=== PATIENT | female | born 1970 | race Two or more races ===

== ENCOUNTER 2018-01-26 05:28 | Emergency (ER) | payer MEDICAID ==
[~2018-01-26 05:28] MED LIST: ALPR-429 PO; ALPR-460 PO; AMIT-106 PO; AMOX-362 PO; CYCL-343 PO; DIA10 PO; DIA5 PO; DICY20TA96 PO; FLUC150T40 PO; FLUO-201 PO; GLYBURIDE PO; HYDR-4309 PO; LOR1 PO; LOR5/325 PO; LORA-1456 PO; MET500 PO; METO-224 PO; METO-734 PO; NO HOME MEDS; OMEP-125 PO; ONDA4TAB PO; ONDA4TAB97 PO; OXYC1TAB54 PO; OXYC7.5T PO; PANT20TA27 PO; PROM-110 PO; PROM25SU8 PR; PROM25SU9 RC; PROM50SU6 PR; RANI150C17 PO; ROPI1TAB36 PO; TRAM-420 PO
--- NOTE | 2018-01-26 05:30 | ER Report ---
History and Physical Time Seen By MD: 05:29 HPI/ROS CHIEF COMPLAINT: Anxiety, vomiting HISTORY OF PRESENT ILLNESS: 47-year-old female presents ambulatory to the ER complaining of vomiting and anxiety. Patient has a history of recurrent anxiety and vomiting. She was seen in the ER on numerous occasions approximately 2 years ago. She had extensive evaluation including CAT scans and endoscopy. All of which were unremarkable. Patient was seen at urgent care recently and placed on alprazolam for anxiety. She only got a prescription for 6 or 8 pills. She tried taking is tonight without improvement. She is very anxious and having repetitive vomiting and gagging with dry heaves. REVIEW OF SYSTEMS: Respiratory: No cough, no dyspnea. Cardiovascular: No chest pain, no palpitations. Gastrointestinal: As above, no abdominal pain. Musculoskeletal: No back pain. Allergies: Coded Allergies: No Known Drug Allergies (Unverified , 01/26/18) Home Meds Active Scripts Hydroxyzine Hcl (HYDROXYZINE HCL) 25 Mg Tablet, 1-2 TAB PO Q6H Y for anxiety or vomiting, #30 Prov:LINWOOD WELDON DO 01/26/18 Ondansetron (ZOFRAN ODT) 4 Mg Tab.rapdis, 4 MG PO every 6 hours Y for NAUSEA/ VOMITING, #10 TAB TAKE 1 TABLET BY MOUTH EVERY 12 HOURS Prov:LINWOOD WELDON DO 01/26/18 Reported Medications Fluticasone Prop 50 Mcg Ns (FLONASE 50 MCG NS) 16 Gm [place].susp, 1 SPRAY NS BID , BOT 01/26/18 Modafinil (MODAFINIL) 200 Mg Tablet, 200 MG PO 01/26/18 Bupropion Hcl (WELLBUTRIN XL) 150 Mg Tab.er.24h, 150 MG PO QDAY, TAB 01/26/18 Discontinued Scripts Promethazine Hcl (PROMETHAZINE HCL) 25 Mg Supp.rect, 25 MG RC Q8H Y for NAUSEA/ VOMITING, #12 SUPP.RECT Prov:AMANDA LEMONS 10/06/16 Promethazine Hcl (PROMETHAZINE HCL) 25 Mg Tablet, 25 MG PO Q8H Y for NAUSEA/ VOMITING, #12 TAB Prov:AMANDA LEMONS 10/06/16 Reviewed Nurses Notes: Yes Old Medical Records Reviewed: Yes Hx Smoking: Yes Smoking Status: Light Tobacco Smoker Exposure to Second Hand Smoke?: No Hx Substance Use Disorder: No Hx Alcohol Use: Yes Constitutional Vital Sign - Last 24 Hours 01/26/18 01/26/18 05:32 06:40 Temp 98.2 Pulse 111 90 Resp 19 19 B/P (MAP) 137/116 137/80 (99) Pulse Ox 97 94 O2 Delivery Room Air Room Air Physical Exam General Appearance: The patient is alert, has no immediate need for airway protection and no current signs of toxicity. Moderate distress, anxious- appearing, vital signs stable, afebrile, pulse ox normal HEENT: Pupils equal and round no injection. Oropharynx without redness or exudate, mucous membranes are moist Respiratory: Chest is non tender, lungs are clear to auscultation. Cardiac: regular rate and rhythm Gastrointestinal: Abdomen is soft and non tender, no masses, bowel sounds normal. Musculoskeletal: Neck: Neck is supple and non tender. No lymphadenopathy, no meningismus Extremities have full range of motion and are non tender. Skin: No rashes or lesions. DIFFERENTIAL DIAGNOSIS: After history and physical exam differential diagnosis was considered for abdominal pain including but not limited to appendicitis, cholecystitis, gastritis and urinary tract infection. Additionally, anxiety, panic attack, gastroparesis. Medical Decision Making ED Course/Re-evaluation ED Course Patient was admitted to an examination room. H&P was done. The differential diagnoses was considered. On clinical exam. Patient has a benign nonsurgical abdomen. She is having repetitive vomiting. She's medicated with Zofran 4 mg sublingual. She's given hydroxyzine 50 mg by mouth. After 5 minutes she vomits up the tablets. She is redosed with a 2nd dose of hydroxyzine 50 mg by mouth. After 25 minutes or vomiting controlled. She tolerates a by mouth challenge. She is discharged home with a prescription for hydroxyzine 25 mg 1- 2 tablets every 6 hours., Nausea or vomiting. Patient's also advised that she can take this for anxiety. Patient advised to follow up with primary care if unimproved in 3-5 days. Decision to Disposition Date: Jan 26, 2018 Decision to Disposition Time: 06:10 Depart Departure Latest Vital Signs Vital Signs Date Time Temp Pulse Resp B/P (MAP) Pulse Ox O2 Delivery O2 Flow Rate FiO2 01/26/18 06:40 90 19 137/80 (99) 94 Room Air 01/26/18 05:32 98.2 Impression: Primary Impression: Vomiting Additional Impression: Anxiety attack Condition: Improved Disposition: HOME OR SELF-CARE New Scripts Hydroxyzine Hcl (HYDROXYZINE HCL) 25 Mg Tablet 1-2 TAB PO Q6H Y for anxiety or vomiting, #30 Prov: LINWOOD WELDON DO 01/26/18 Patient Instructions: Acute Nausea and Vomiting (ED), Panic Attack (ED) Additional Instructions: Follow-up with your primary care doctor if unimproved in 3-5 days Problem Qualifiers Primary Impression: Vomiting Vomiting type: unspecified Vomiting Intractability: intractable Nausea presence: unspecified Qualified Codes: R11.10 - Vomiting, unspecified LINWOOD WELDON DO Jan 26, 2018 05:30
[2018-01-26] MEDS ORDERED: FLUT16SP19 NS (05:45)
[2018-01-26] MEDS ORDERED: MODA200T6 PO (05:45)
[2018-01-26] MEDS ORDERED: BUPR-472 PO (05:45)
[2018-01-26] MEDS ORDERED: ONDANSETRON 4 MG ODT TABDP SL ONE (05:50)
[2018-01-26] MEDS ORDERED: hydrOXYzine PAMOATE 25 MG CAP PO ONE (05:50)
[2018-01-26] MEDS ORDERED: HYDR-4225 PO (06:12)
[2018-01-26] MEDS ORDERED: ONDA4TAB PO (06:12)
[2018-01-26] MEDS ORDERED: hydrOXYzine 25 MG TAB PO ONE (06:20)
[2018-01-26 06:40] VITALS: BP 137/80
== END 2018-01-26 06:40 | disposition home or self-care (01) ==
LOC: ER 05:32
DX: F41.0 Panic disorder [episodic paroxysmal anxiety] (principal); R11.10 Vomiting, unspecified
CPT/HCPCS: 99282; Q0177; S0119

== ENCOUNTER 2018-05-10 13:46 | Emergency (ER) | payer MEDICAID ==
[~2018-05-10 13:46] MED LIST changes: +BUPR-472 PO; +FLUT16SP19 NS; +HYDR-4225 PO; +MODA200T6 PO
--- NOTE | 2018-05-10 13:47 | ER Report ---
History and Physical Time Seen By MD: 13:47 HPI/ROS CHIEF COMPLAINT: Toothache HISTORY OF PRESENT ILLNESS: Patient with complaint of left 3rd maxillary molar pain. Patient has been taking Tylenol and Motrin without relief. She does have an oral maxillary facial surgeon who she follows with. She has an appointment with Dr. Stokes in the near future for a consultation and subsequent possible tooth removal. Allergies: Coded Allergies: No Known Drug Allergies (Unverified , 01/26/18) Home Meds Active Scripts Hydroxyzine Hcl (HYDROXYZINE HCL) 25 Mg Tablet, 1-2 TAB PO Q6H Y for anxiety or vomiting, #30 Prov:LINWOOD WELDON DO 01/26/18 Reported Medications Fluticasone Prop 50 Mcg Ns (FLONASE 50 MCG NS) 16 Gm [place].susp, 1 SPRAY NS BID , BOT 01/26/18 Modafinil (MODAFINIL) 200 Mg Tablet, 200 MG PO 01/26/18 Bupropion Hcl (WELLBUTRIN XL) 150 Mg Tab.er.24h, 150 MG PO QDAY, TAB 01/26/18 Hx Smoking: Yes Smoking Status: Light Tobacco Smoker Exposure to Second Hand Smoke?: No Hx Substance Use Disorder: No Hx Alcohol Use: Yes Constitutional Vital Sign - Last 24 Hours 05/10/18 13:50 Temp 97.2 Pulse 89 Resp 22 B/P (MAP) 128/101 Pulse Ox 94 O2 Delivery Room Air Physical Exam General appearance: Alert no distress. Oropharyngeal: Mucous membranes are moist. Patient has erosion of the dentin of the left upper 3rd maxillary tooth. There is no gingival inflammation or swelling. No evidence for abscess. Medical Decision Making ED Course/Re-evaluation ED Course Patient with dental caries. Plan will be short course of oral pain medication and penicillin. Patient is going to follow with Dr. Stokes for tooth removal. Decision to Disposition Date: May 10, 2018 Decision to Disposition Time: 14:05 Depart Departure Latest Vital Signs Vital Signs Date Time Temp Pulse Resp B/P (MAP) Pulse Ox O2 Delivery O2 Flow Rate FiO2 05/10/18 13:50 97.2 89 22 128/101 94 Room Air Impression: Primary Impression: Toothache Condition: Improved Disposition: HOME OR SELF-CARE New Scripts Amoxicillin (AMOXICILLIN) 500 Mg Capsule 1 CAP PO Q8H, #15 CAPSULE 0 Refills TAKE ONE CAPSULE BY MOUTH EVERY 8 HOURS Prov: BRUNO ANN MD 05/10/18 Hydrocodone Bit/Acetaminophen (HYDROCODON-ACETAMINOPHEN 5-325) 1 Each Tablet 1 EACH PO Q6H Y for PAIN, #15 TAB 0 Refills Prov: BRUNO ANN MD 05/10/18 Patient Instructions: Toothache (ED) BRUNO ANN MD May 10, 2018 13:47
[2018-05-10 13:50] VITALS: BP 128/101
[2018-05-10] MEDS ORDERED: HYDR-385 PO (14:03)
[2018-05-10] MEDS ORDERED: AMOX-362 PO (14:03)
[2018-05-10] MEDS ORDERED: TRAM-420 PO (16:58)
== END 2018-05-10 14:11 | disposition home or self-care (01) ==
LOC: ER 13:50
DX: K08.89 Other specified disorders of teeth and supporting structures (principal)
CPT/HCPCS: 99281

== ENCOUNTER 2018-05-10 15:47 | Emergency (ER) | payer MEDICAID ==
[~2018-05-10 15:47] MED LIST changes: +HYDR-385 PO
[2018-05-10 15:57] VITALS: BP 166/111
--- NOTE | 2018-05-10 16:05 | ER Report ---
History and Physical Time Seen By MD: 15:49 Hx. of Stated Complaint: PPT RETURNS FOR WORSENING TOOTH PAIN. HAS TAKEN HER MEDS WITHOUT RELIEF HPI/ROS CHIEF COMPLAINT: Dental pain HISTORY OF PRESENT ILLNESS: This is a 47-year-old female who was seen in the emergency department approximately 2 Hours prior to arrival, she returns for the same complaint of dental pain. Patient states that she did go get her prescriptions filled took her antibiotic and some pain medication, realized that the pain medication "does not work for her" and decided to return to the emergency department for reevaluation. Patient also states that the pain "has increased on the left side of my mouth". Patient has no other deficits. No fevers, no aches, chills, chest pain or shortness of breath. Allergies: Coded Allergies: No Known Drug Allergies (Unverified , 05/10/18) Home Meds Active Scripts Tramadol Hcl (TRAMADOL HCL) 50 Mg Tablet, 50-100 MG PO Q4-6H, #15 TAB 0 Refills Max dose of 10 tabs a day. Prov:GABINO TOSCANO LIME KILN AND RECAUSTICIZING OPERATOR-BC 05/10/18 Amoxicillin (AMOXICILLIN) 500 Mg Capsule, 1 CAP PO Q8H, #15 CAPSULE 0 Refills TAKE ONE CAPSULE BY MOUTH EVERY 8 HOURS Prov:BRUNO ANN MD 05/10/18 Hydrocodone Bit/Acetaminophen (HYDROCODON-ACETAMINOPHEN 5-325) 1 Each Tablet, 1 EACH PO Q6H Y for PAIN, #15 TAB 0 Refills Prov:BRUNO ANN MD 05/10/18 Hydroxyzine Hcl (HYDROXYZINE HCL) 25 Mg Tablet, 1-2 TAB PO Q6H Y for anxiety or vomiting, #30 Prov:LINWOOD WELDON DO 01/26/18 Reported Medications Fluticasone Prop 50 Mcg Ns (FLONASE 50 MCG NS) 16 Gm [place].susp, 1 SPRAY NS BID , BOT 01/26/18 Modafinil (MODAFINIL) 200 Mg Tablet, 200 MG PO 01/26/18 Bupropion Hcl (WELLBUTRIN XL) 150 Mg Tab.er.24h, 150 MG PO QDAY, TAB 01/26/18 Past Medical/Surgical History The patient has a past medical and surgical history of migraines, sleep apnea, wears glasses, diabetes, anxiety, depression. Hx Smoking: Yes Smoking Status: Light Tobacco Smoker Exposure to Second Hand Smoke?: No Hx Substance Use Disorder: No Hx Alcohol Use: Yes Constitutional Vital Sign - Last 24 Hours 05/10/18 15:57 Temp 97.8 Pulse 84 Resp 22 B/P (MAP) 166/111 Pulse Ox 94 O2 Delivery Room Air Physical Exam General appearance: Alert no distress. Respiratory: Chest is non tender, lungs are clear to auscultation. Cardiac: Regular rate and rhythm Dental: The gingiva is pink and moist, no erythema or obvious signs of infection. Patient does have dental caries and multiple fillings to her teeth. She does have what appears to be a dental carry to the outside of the #15 tooth. And what appears to be an erupting molar on the same side. DIFFERENTIAL DIAGNOSIS: After history and physical exam differential diagnosis was considered for dental abscess, dental caries and dental pain. Medical Decision Making ED Course/Re-evaluation ED Course The patient was admitted to room. A history physical were obtained. Differential diagnoses were considered. I did offer the patient a dental block which she accepted, no the block below. I did tell the patient that I would give her a prescription for Ultram if she brought in the hydrocodone, she did return a hydrocodone to us I did count to myself she had 13 of the hydrocodone in the bottle the prescription was for 15. The patient states she is going to call the dentist tomorrow. Patient had no other questions or concerns at this time and discharged home. I did tell the patient I can exchanger her medications, if she returns the Hydrocodone I can send an Rx into her pharmacy for Ultram. The patient is willing to do this as she "had hard time with hydrocodone". Procedure: Dental block. Dental block was performed. The indication for the procedure dental pain. An inferior alveolar nerve block was done using 0.25% Bupivicaine x2 with a total of 4mls injected. The patient tolerated well. The procedure was performed by myself. Decision to Disposition Date: May 10, 2018 Decision to Disposition Time: 16:38 Depart Departure Latest Vital Signs Vital Signs Date Time Temp Pulse Resp B/P (MAP) Pulse Ox O2 Delivery O2 Flow Rate FiO2 05/10/18 15:57 97.8 84 22 166/111 94 Room Air Impression: Primary Impression: Pain, dental Condition: Improved Disposition: HOME OR SELF-CARE New Scripts Tramadol Hcl (TRAMADOL HCL) 50 Mg Tablet 50-100 MG PO Q4-6H, #15 TAB 0 Refills Max dose of 10 tabs a day. Prov: GABINO TOSCANO 05/10/18 Patient Instructions: Dental Caries (ED) Additional Instructions: Continue taking that antibiotic as prescribed. Use the Ultram as prescribed for severe pain. Take Ibuprofen as needed for additional pain relief. Keep your Dental appointment. Return to the ED for any other concerns or worsening symptoms. GABINO TOSCANO-MARTIN May 10, 2018 16:05
[2018-05-10] MEDS ORDERED: TRAM-420 PO (16:58)
== END 2018-05-10 16:56 | disposition home or self-care (01) ==
LOC: ER 16:00
DX: K08.89 Other specified disorders of teeth and supporting structures (principal)
CPT/HCPCS: 99282; D9110

== ENCOUNTER 2018-05-12 18:22 | Emergency (ER) | payer MEDICAID ==
--- NOTE | 2018-05-12 18:44 | ER Report ---
History and Physical Time Seen By MD: 18:24 HPI/ROS CHIEF COMPLAINT: Left upper toothache HISTORY OF PRESENT ILLNESS: 47-year-old female presents ambulatory to the ER complaining of left upper jaw pain. Patient has numerous teeth with large caries there. Patient's been seen twice in the last few days. Here in the emergency department. She is currently on amoxicillin. She was given hydrocodone and tramadol. This does not seem to be providing adequate pain relief for her. Patient notes no fever, chills or difficulty swallowing or breathing. Patient reports she has an appointment to see her dentist Monday next week in [place]. REVIEW OF SYSTEMS: Respiratory: No cough, no dyspnea. Cardiovascular: No chest pain, no palpitations. Gastrointestinal: No vomiting, no abdominal pain. Musculoskeletal: No back pain. Allergies: Coded Allergies: No Known Drug Allergies (Unverified , 05/10/18) Home Meds Active Scripts Oxycodone Hcl/Acetaminophen (PERCOCET 5-325 MG TABLET) 1 Each Tablet, 1 EACH PO Q4-6H Y for PAIN, #8 Prov:LINWOOD WELDON DO 05/12/18 Hydroxyzine Hcl (HYDROXYZINE HCL) 25 Mg Tablet, 1-2 TAB PO Q6H Y for nausea, vomiting, anxiety, #30 Prov:LINWOOD WELDON DO 05/12/18 Tramadol Hcl (TRAMADOL HCL) 50 Mg Tablet, 50-100 MG PO Q4-6H, #15 TAB 0 Refills Max dose of 10 tabs a day. Prov:GABINO TOSCANO SENIOR BUSINESS DEVELOPMENT ANALYST-BC 05/10/18 Amoxicillin (AMOXICILLIN) 500 Mg Capsule, 1 CAP PO Q8H, #15 CAPSULE 0 Refills TAKE ONE CAPSULE BY MOUTH EVERY 8 HOURS Prov:BRUNO ANN MD 05/10/18 Hydrocodone Bit/Acetaminophen (HYDROCODON-ACETAMINOPHEN 5-325) 1 Each Tablet, 1 EACH PO Q6H Y for PAIN, #15 TAB 0 Refills Prov:BRUNO ANN MD 05/10/18 Hydroxyzine Hcl (HYDROXYZINE HCL) 25 Mg Tablet, 1-2 TAB PO Q6H Y for anxiety or vomiting, #30 Prov:LINWOOD WELDON DO 01/26/18 Reported Medications Fluticasone Prop 50 Mcg Ns (FLONASE 50 MCG NS) 16 Gm [place].susp, 1 SPRAY NS BID , BOT 4/6/18 Modafinil (MODAFINIL) 200 Mg Tablet, 200 MG PO 01/26/18 Bupropion Hcl (WELLBUTRIN XL) 150 Mg Tab.er.24h, 150 MG PO QDAY, TAB 01/26/18 Reviewed Nurses Notes: Yes Old Medical Records Reviewed: Yes Hx Smoking: Yes Smoking Status: Light Tobacco Smoker Exposure to Second Hand Smoke?: No Hx Substance Use Disorder: No Hx Alcohol Use: Yes Constitutional Vital Sign - Last 24 Hours 05/12/18 05/12/18 05/12/18 18:25 18:26 18:52 Temp 98.3 Pulse 82 68 Resp 24 B/P (MAP) 135/88 (104) 135/88 Pulse Ox 96 96 O2 Delivery Room Air Physical Exam General Appearance: The patient is alert, has no immediate need for airway protection and no current signs of toxicity. Vital signs stable, afebrile, pulse ox normal HEENT: Pupils equal and round no injection. TMs normal, TMJs nontender, examination of the left upper jaw margin shows numerous teeth with large fillings. Patient thinks it is the posterior wisdom tooth that is the source of pain, but most of the teeth are suspect. There is no oral pharyngeal edema. There is some lymphadenopathy on palpation of the left side of the cervical chain Respiratory: Chest is non tender, lungs are clear to auscultation. Cardiac: regular rate and rhythm Gastrointestinal: Abdomen is soft and non tender, no masses, bowel sounds normal. Musculoskeletal: Neck: Neck is supple and non tender. Extremities have full range of motion and are non tender. Skin: No rashes or lesions. DIFFERENTIAL DIAGNOSIS: After history and physical exam differential diagnosis was considered for toothache, dental abscess, dental pain, trigeminal neuralgia , TMJ disorder, otitis media Medical Decision Making ED Course/Re-evaluation ED Course Patient was admitted to an examination room. H&P was done. The differential diagnoses was considered. On clinical examination. Patient appears in moderate discomfort with a toothache. She has very poor dentition. There are numerous fillings. It's difficult to isolate which tooth is the affected specimen. Patient's failing outpatient therapy with tramadol, ibuprofen and amoxicillin. A dental block is performed with Marcaine 0.5% with epinephrine, approximately 8 mL was used with a #27-gauge needle bent at 90. 2 injections of approximately 4 mm each, were performed on the inside of the outside of the gum line in the posterior aspect. Patient reports moderate improvement of her pain. Patient be discharged with a perception for hydroxyzine to add to her medications for potentiation of her pain relieving effect. Patient was given a limited supply of Percocet 5/325 #8 tablets to get her through until Monday. Patient reports she does have an appointment to see her dentist in [place] on Monday. Decision to Disposition Date: May 12, 2018 Decision to Disposition Time: 18:55 Depart Departure Latest Vital Signs Vital Signs Date Time Temp Pulse Resp B/P (MAP) Pulse Ox O2 Delivery O2 Flow Rate FiO2 05/12/18 18:52 68 96 05/12/18 18:26 98.3 24 135/88 Room Air Impression: Primary Impression: Toothache Condition: Improved Disposition: HOME OR SELF-CARE New Scripts Oxycodone Hcl/Acetaminophen (PERCOCET 5-325 MG TABLET) 1 Each Tablet 1 EACH PO Q4-6H Y for PAIN, #8 Prov: LINWOOD WELDON DO 05/12/18 Hydroxyzine Hcl (HYDROXYZINE HCL) 25 Mg Tablet 1-2 TAB PO Q6H Y for nausea, vomiting, anxiety, #30 Prov: LINWOOD WELDON DO 05/12/18 Patient Instructions: Toothache (ED) Additional Instructions: Take ibuprofen 200 mg 3-4 tablets 3 times a day with food Alternate warm and hot compresses to the affected area Do not take tramadol and oxycodone together separate them by at least 4-6 hours Take hydroxyzine alongside of tramadol or oxycodone to potentiate its effect Follow-up with dentist as planned on Monday LINWOOD WELDON DO May 12, 2018 18:44
[2018-05-12] MEDS ORDERED: HYDR-4225 PO (18:57)
[2018-05-12] MEDS ORDERED: OXYC-865 PO (18:57)
[2018-05-12 19:09] VITALS: BP 131/82
== END 2018-05-12 19:10 | disposition home or self-care (01) ==
LOC: ER 18:28
DX: K08.89 Other specified disorders of teeth and supporting structures (principal)
CPT/HCPCS: 99282

== ENCOUNTER 2018-09-22 00:20 | Emergency (ER) | payer MEDICAID ==
[~2018-09-22 00:20] MED LIST changes: -HYDR-4309 PO; +HYDR-653 PO; +OXYC-865 PO
--- NOTE | 2018-09-22 00:32 | ER Report ---
History and Physical Time Seen By MD: 00:33 HPI/ROS CHIEF COMPLAINT: dental pain HISTORY OF PRESENT ILLNESS: This is a 47 year old female. 5 days of dental pain. On antibiotics from dentist for 3 days, Amoxicillin 3 times a day. Pain right lower 2nd molar. Going to have it puller on Oct 03. Taking Tylenol for pain, ineffective. Allergies: Coded Allergies: No Known Drug Allergies (Unverified , 05/10/18) Home Meds Active Scripts Hydroxyzine Hcl (HYDROXYZINE HCL) 25 Mg Tablet, 25 MG PO Q8H PRN for ANXIETY, #30 TAB 0 Refills Prov:YORDAN MINOR MD 09/22/18 Oxycodone Hcl/Acetaminophen (PERCOCET 5-325 MG TABLET) 1 Each Tablet, 1 EACH PO Q4H PRN for PAIN, #8 TAB 0 Refills Prov:YORDAN MINOR MD 09/22/18 Amoxicillin (AMOXICILLIN) 500 Mg Capsule, 1 CAP PO Q8H, #15 CAPSULE 0 Refills TAKE ONE CAPSULE BY MOUTH EVERY 8 HOURS Prov:BRUNO ANN MD 05/10/18 Hydroxyzine Hcl (HYDROXYZINE HCL) 25 Mg Tablet, 1-2 TAB PO Q6H PRN for anxiety or vomiting, #30 Prov:LINWOOD WELDON DO 01/26/18 Discontinued Reported Medications Fluticasone Prop 50 Mcg Ns (FLONASE 50 MCG NS) 16 Gm [place].susp, 1 SPRAY NS BID, BOT 01/26/18 Modafinil (MODAFINIL) 200 Mg Tablet, 200 MG PO 01/26/18 Bupropion Hcl (WELLBUTRIN XL) 150 Mg Tab.er.24h, 150 MG PO QDAY, TAB 01/26/18 Discontinued Scripts Oxycodone Hcl/Acetaminophen (PERCOCET 5-325 MG TABLET) 1 Each Tablet, 1 EACH PO Q4-6H PRN for PAIN, #8 Prov:LINWOOD WELDON DO 05/12/18 Hydroxyzine Hcl (HYDROXYZINE HCL) 25 Mg Tablet, 1-2 TAB PO Q6H PRN for nausea, vomiting, anxiety, #30 Prov:LINWOOD WELDON DO 05/12/18 Tramadol Hcl (TRAMADOL HCL) 50 Mg Tablet, 50-100 MG PO Q4-6H, #15 TAB 0 Refills Max dose of 10 tabs a day. Prov:GABINO TOSCANO Juan A SALES SUPPORT ASSOCIATE-BC 05/10/18 Hydrocodone Bit/Acetaminophen (HYDROCODON-ACETAMINOPHEN 5-325) 1 Each Tablet, 1 EACH PO Q6H PRN for PAIN, #15 TAB 0 Refills Prov:BRUNO ANN MD 05/10/18 Reviewed Nurses Notes: Yes Hx Smoking: Yes Smoking Status: Light Tobacco Smoker Exposure to Second Hand Smoke?: No Hx Substance Use Disorder: No Hx Alcohol Use: Yes Constitutional Vital Sign - Last 24 Hours 09/22/18 00:26 Temp 98.2 Pulse 76 Resp 18 Pulse Ox 96 O2 Delivery Room Air Physical Exam General: Alert, crying because of pain. ENT: mild redness of the gums. no sign of abscess. Pain with palpation of that tooth. Neck: No lymphadenopathy. Medical Decision Making ED Course/Re-evaluation ED Course See instructions below. Decision to Disposition Date: Sep 22, 2018 Decision to Disposition Time: 00:44 Depart Departure Latest Vital Signs Vital Signs Date Time Temp Pulse Resp B/P (MAP) Pulse Ox O2 Delivery O2 Flow Rate FiO2 09/22/18 00:26 98.2 76 18 96 Room Air Impression: Primary Impression: Anxiety Additional Impression: Pain, dental Condition: Improved Disposition: HOME OR SELF-CARE New Scripts Hydroxyzine Hcl (HYDROXYZINE HCL) 25 Mg Tablet 25 MG PO Q8H PRN for ANXIETY, #30 TAB 0 Refills Prov: YORDAN MINOR MD 09/22/18 Oxycodone Hcl/Acetaminophen (PERCOCET 5-325 MG TABLET) 1 Each Tablet 1 EACH PO Q4H PRN for PAIN, #8 TAB 0 Refills Prov: YORDAN MINOR MD 09/22/18 Patient Instructions: Anxiety (ED), Dental Caries (ED) Additional Instructions: Take Ibuprofen 200mg over the counter tablets, take 4 tablets every 8hours as needed for pain. Take Percocet 5/325, one every 4hours as needed for severe pain. Take Hydroxyzine 25mg, one every 8 hours as needed for anxiety. Problem Qualifiers YORDAN MINOR MD Sep 22, 2018 00:32
[2018-09-22] MEDS ORDERED: OXYC-865 PO (00:45)
[2018-09-22] MEDS ORDERED: hydrOXYzine 25 MG TAB TH 2 TAB/BOTTLE PO ONE (00:45)
[2018-09-22] MEDS ORDERED: HYDR-4225 PO (00:45)
[2018-09-22] MEDS ORDERED: oxyCODONE/ACETAMIN 5/325MG TH 2 TAB/BOTTLE PO ONE (00:45)
[2018-09-22] MEDS ORDERED: IBUPROFEN 800 MG TAB PO ONE (00:45)
== END 2018-09-22 00:50 | disposition home or self-care (01) ==
LOC: ER 00:43
DX: F41.9 Anxiety disorder, unspecified (principal); K08.89 Other specified disorders of teeth and supporting structures
CPT/HCPCS: 99283

== ENCOUNTER 2019-01-24 10:03 | Emergency (ER) | payer MEDICAID ==
[~2019-01-24 10:03] MED LIST changes: +SULF-198 PO
[2019-01-24] MEDS ORDERED: CEPH500T7 PO (10:45)
[2019-01-24] MEDS ORDERED: LOR5/325 PO (10:45)
--- NOTE | 2019-01-24 10:48 | ER Report ---
History and Physical Time Seen By MD: 10:30 Hx. of Stated Complaint: pt had a breast bx month ago, 2 weeks ago noted swelling and discharge so she went to her surgeon who told her it was normal. still hurts and having discharge HPI/ROS CHIEF COMPLAINT: Possible breast infection HISTORY OF PRESENT ILLNESS: Patient is a 48-year-old female who recently underwent breast surgery in the [place] area with incision and drainage. She states for the past week she's noted some discharge coming from the area and nipple site where the incision was made. She denies any fevers or chills. She states that she did not follow her stop her from instructions to rest and wear a special bra for 10-14 days. She states she will return to work 3 days after the surgery and gave up wearing the supportive bra. Allergies: Coded Allergies: No Known Drug Allergies (Unverified , 10/17/18) Home Meds Active Scripts Hydrocodone Bit/Acetaminophen (HYDROCODON-ACETAMINOPHEN 5-325) 1 Each Tablet, 1 EACH PO Q4-6H PRN for PAIN, #15 TAB 0 Refills TAKE ONE TABLET BY MOUTH EVERY 4-6 HOURS NEEDED FOR PAIN Prov:BRUNO ANN MD 01/24/19 Cephalexin 500 Mg Tab (KEFLEX 500 MG TAB) 500 Mg Tablet, 500 MG PO Q6H, #40 TAB 0 Refills TAKE ONE TABLET BY MOUTH EVERY SIX HOURS Prov:BRUNO ANN MD 01/24/19 Hydroxyzine Hcl (HYDROXYZINE HCL) 25 Mg Tablet, 25 MG PO Q8H PRN for ANXIETY, #30 TAB 0 Refills Prov:YORDAN MINOR MD 09/22/18 Discontinued Scripts Sulfamethoxazole/Trimet 800-160 Mg Tab (BACTRIM DS TABLET) 1 Each Tablet, 1 TAB PO Q12H, #14 TAB 0 Refills Prov:YORDAN MINOR MD 10/17/18 Past Medical/Surgical History History of recent breast surgery Hx Smoking: Yes Smoking Status: Light Tobacco Smoker Exposure to Second Hand Smoke?: No Hx Substance Use Disorder: No Hx Alcohol Use: Yes Constitutional Vital Sign - Last 24 Hours 01/24/19 01/24/19 01/24/19 10:07 10:30 11:02 Temp 98.5 Pulse 120 107 Resp 20 B/P (MAP) 136/114 124/85 (98) Pulse Ox 94 94 O2 Delivery Room Air Physical Exam General appearance: Alert no distress. Respiratory: Chest is non tender, lungs are clear to auscultation. Cardiac: Regular rate and rhythm [ ] Examination of the left breast which was done with a female standby nurse Warren, patient has area of induration under the left areaof the pus and no fluctuance felt. Medical Decision Making ED Course/Re-evaluation ED Course Plan at this time will be to start patient on oral antibiotics and have her follow-up as an outpatient. No evidence of drainable mass at this time. Patient given instructions to return if symptoms worsen. Decision to Disposition Date: Jan 24, 2019 Decision to Disposition Time: 11:30 Depart Departure Latest Vital Signs Vital Signs Date Time Temp Pulse Resp B/P (MAP) Pulse Ox O2 Delivery O2 Flow Rate FiO2 01/24/19 11:02 124/85 (98) 01/24/19 10:30 107 94 01/24/19 10:07 98.5 20 Room Air Impression: Primary Impression: Mastitis Condition: Improved Disposition: HOME OR SELF-CARE Referrals: HELENA ACEVES DO call to schedule an appointment as soon as possible for evaluation of breast infection New Scripts Hydrocodone Bit/Acetaminophen (HYDROCODON-ACETAMINOPHEN 5-325) 1 Each Tablet 1 EACH PO Q4-6H PRN for PAIN, #15 TAB 0 Refills TAKE ONE TABLET BY MOUTH EVERY 4-6 HOURS NEEDED FOR PAIN Prov: BRUNO ANN MD 01/24/19 Cephalexin 500 Mg Tab (KEFLEX 500 MG TAB) 500 Mg Tablet 500 MG PO Q6H, #40 TAB 0 Refills TAKE ONE TABLET BY MOUTH EVERY SIX HOURS Prov: BRUNO ANN MD 01/24/19 Departure Forms: ER Transition Record, Medications Reconciliation, Off Work/School Form, School or Work Release?: Work Number of days to be released: 2 Patient Portal Information Patient Instructions: Mastitis (ED) Additional Instructions: Take your antibiotics as directed and until the course is complete Warm soaks to the breast area 2-3 times per day. Schedule an appointment with Dr Aceves as soon as possible for recheck of your breast infection BRUNO ANN MD Jan 24, 2019 10:48
[2019-01-24 11:02] VITALS: BP 124/85
== END 2019-01-24 10:58 | disposition home or self-care (01) ==
LOC: ER 10:30
DX: N61.0 Mastitis without abscess (principal)
CPT/HCPCS: 99281